=== PATIENT | female | born 1955 | race Caucasian/White ===

== ENCOUNTER 2018-02-27 01:23 | Observation (INO) ==
--- NOTE | 2018-02-27 01:52 | ED ---
HPI General Chief Complaint: Chest Pain Stated Complaint: Sternum pain x 1 hr,clammy,nausea Time Seen by Provider: 02/27/18 01:48 Source: patient Mode of arrival: ambulatory Limitations: no limitations History of Present Illness HPI narrative: 62-year-old female presents to the emergency department by private transportation the care of her spouse for evaluation of retrosternal chest pain associated with epigastric discomfort and mild diaphoresis with episode of nausea and times one episode of emesis without hematemesis or coffee- ground emesis. Patient has history of hypertension and family history of premature onset heart disease with both parents passing away from heart related issues and brother dying at age 49 from myocardial infarction. No prior similar history of epigastric to chest pain. Patient does admit to drinking alcohol this evening. Patient does not smoke tobacco and no prior history of gastritis peptic ulcer disease pancreatitis or gallbladder disease. MD complaint: Reports chest pain STEMI Alert: No Onset (ago): hour(s) Duration: constant and improved Onset: during rest Pain location: Reports substernal and epigastric Severity: moderate Quality: Reports tightness and aching; Denies ripping and similar to prior CA Pain radiation: Denies RUE, LUE, back, neck, jaw/teeth and abdomen Relieving factors: other (vomiting) Exacerbating factors: nothing Context: Denies recent illness, recent surgery, recent immobilization, recent travel, trauma/injury, new medications and history of DVT/PE Associated symptoms: Reports nausea, vomiting and diaphoresis; Denies dyspnea, sense of impending doom, syncope, palpitations, fever, cough and leg swelling Treatments prior to arrival chest pain: Reports none Related Data On Oral Contraceptives: No Home Medications Medication Instructions Recorded Confirmed alprazolam [Xanax] 0.25 mg PO BID PRN 02/27/18 02/27/18 losartan 100 mg PO DAILY 02/27/18 02/27/18 Allergies Allergy/AdvReac Type Severity Reaction Status Date / Time No Known Allergies Allergy Verified 02/27/18 02:15 Review of Systems ROS: all other systems reviewed are negative PMFSH History History Provided By: Patient (Hypertension; family history of CAD) Medical History Medical History Hypertension (Acute) Surgical History Surgical History Hx of appendectomy (Acute) Social History Social History Substance History: No History of Abuse Smoking Status: Former smoker How Often Do You Have a Drink Containing Alcohol: 4 or more times a week Exam Narrative Exam Narrative: GENERAL: Well-nourished, well-developed patient. SKIN: Focused skin assessment warm/dry. HEAD: Normocephalic. EYES: No scleral icterus. No injection or drainage. NECK: Supple, trachea midline. No JVD or lymphadenopathy. CARDIOVASCULAR: Regular rate and rhythm without murmurs, gallops, or rubs. RESPIRATORY: Breath sounds equal bilaterally. No accessory muscle use. GASTROINTESTINAL: Abdomen soft, non-tender, nondistended. MUSCULOSKELETAL: No cyanosis, or edema. BACK: Nontender without obvious deformity. No CVA tenderness. Course Initial Documented Vital Signs Temperature 98.0 F 02/27/18 01:33 Pulse Rate 99 H 02/27/18 01:33 Respiratory Rate 18 02/27/18 01:33 Blood Pressure 142/67 H 02/27/18 01:33 Pulse Oximetry 98 02/27/18 01:33 Last Documented Vital Signs Temperature 97.9 F 02/27/18 02:20 Pulse Rate 92 H 02/27/18 02:20 Respiratory Rate 18 02/27/18 02:20 Blood Pressure 128/68 02/27/18 02:20 Pulse Oximetry 97 02/27/18 02:20 Medical Decision Making MDM Narrative Medical decision making narrative: 62-year-old female presents with complaint of chest pain that improved after episode of emesis placed on cardiac monitor technician with continuous pulse oximetry IV access obtained specimens collected and sent for resulting EKG performed which is normal sinus rhythm rate [address] elevation injury pattern or ectopy noted Lab values found to be in normal range specifically troponin I less than 0.02, not elevated Plan observation admission for chest pain center per protocol in view of risk factor profile female age 62 hypertension and early onset cardiac disease with brother after CA at age 49 Patient's case discussed with Dr. Herrera for [facility] protocol obs admission Medical Screen Exam Complete: Yes Emergency Medical Condition: Yes Differential Diagnosis Differential Diagnosis: Chest pain atypical chest pain ACS CA gastritis peptic ulcer disease pancreatitis cholecystitis biliary colic esophageal spasm Medical Records Medical records reviewed: Yes I reviewed the patient's medical records. Lab Data Result diagrams: 02/27/18 01:50 02/27/18 01:50 Lab Results 02/27/18 02/27/18 02/27/18 Range/Units 01:50 01:50 01:50 CBC w Diff Auto diff final WBC 10.1 (4.0-11.0) th/mm3 RBC 4.53 (4.00-5.30) mil/mm3 Hgb 13.7 (11.6-15.3) gm/dL Hct 40.0 (35.0-46.0) % MCV 88.2 (80.0-100.0) fL MCH 30.2 (27.0-34.0) pg MCHC 34.3 (32.0-36.0) % RDW 12.5 (11.6-17.2) % Plt Count 262 (150-450) th/mm3 MPV 7.4 (7.0-11.0) fL Neut % (Auto) 78.6 H (16.0-70.0) % Lymph % (Auto) 15.0 (9.0-44.0) % [place] % (Auto) 4.7 (0.0-8.0) % Eos % (Auto) 1.1 (0.0-4.0) % Baso % (Auto) 0.6 (0.0-2.0) % Neut # (Auto) 7.9 H (1.8-7.7) th/mm3 Lymph # (Auto) 1.5 (1.0-4.8) th/mm3 [place] # (Auto) 0.5 (0.0-0.9) th/mm3 Eos # (Auto) 0.1 (0.0-0.4) th/mm3 Baso # (Auto) 0.1 (0.0-0.2) th/mm3 WBC Differential . Differential Comment . Sodium 141 (136-145) meq/L Potassium 3.8 (3.5-5.1) meq/L Chloride 106 (98-107) meq/L Carbon Dioxide 27.4 (21.0-32.0) meq/L Anion Gap 8 (5-15) meq/L BUN 15 (7-18) mg/dL Creatinine 0.71 (0.50-1.00) mg/dL Estimated GFR 84 L (>89) mL/min Random Glucose 143 H (74-106) mg/dL Calcium 8.0 L (8.5-10.1) mg/dL Magnesium 2.2 (1.5-2.5) mg/dL Total Bilirubin 0.3 (0.2-1.0) mg/dL AST 21 (15-37) U/L ALT 38 (10-53) U/L Alkaline Phosphatase 103 (45-117) U/L Troponin I Less than 0.02 L (0.02-0.05) ng/mL Total Protein 6.9 (6.4-8.2) g/dL Albumin 3.5 (3.4-5.0) g/dL Lipase 102 (73-393) U/L Imaging Data Radiologist's impression: Chest X-Ray 02/27/18 01:48 CONCLUSION: No acute cardiopulmonary process. ECG Data EKG Prior to Arrival: No Attestation: I personally reviewed and interpreted this ECG as follows: (EKG: Normal sinus rhythm rate 90 normal axis and intervals no acute ST elevation injury pattern or ectopy noted) Discharge Plan Discharge Disposition Patient Disposition: ED Admit(ED Internal Use Only) Discharge Condition Condition: Stable Discharge Order Discharge Orders: ED Use Only Admit Order (Routine); Ordered 02/27/18 Ordered By: Sherri Shaw Discharge Details Diagnosis: Chest pain Physicians Team ED Provider: Sherri Shaw Primary Care Provider: Kianna Sullivan Attending Provider: Cierra Henson Discharge Interventions Interventions: Vital Signs Last Done: 02/27/18 01:33 Status ED Status: Admitted Observation Patient
[2018-02-27] MEDS ORDERED: Sod Chloride 0.9% Inj 1,000 ML IV.CONT SCH (02:00)
--- NOTE | 2018-02-27 02:12 | XR ---
EXAM DATE: 02/27/2018 2:04 AM EST AGE/SEX: 62 years / Female INDICATIONS: Lower chest pain. CLINICAL DATA: This is the patient's initial encounter. Patient reports that signs and symptoms have been present for 1 day and indicates a pain score of 2/10. MEDICAL/SURGICAL HISTORY: None. None. COMPARISON: No prior exams available for comparison. FINDINGS: A single AP view of the chest demonstrates the lungs to be symmetrically aerated without evidence of mass, infiltrate or effusion. The cardiomediastinal contours are unremarkable. Osseous structures a re intact. CONCLUSION: No acute cardiopulmonary process. Electronically signed by: Dakotah Dodson MD Board Certified Radiologist 02/27/2018 2:11 AM EST
[2018-02-27 02:21] LABS: Chloride 106 meq/L (98-107); Potassium 3.8 meq/L (3.5-5.1); Sodium 141 meq/L (136-145)
[2018-02-27 02:27] LABS: Albumin 3.5 g/dL (3.4-5.0); Anion Gap 8 meq/L (5-15); Blood Urea Nitrogen 15 mg/dL (7-18); Carbon Dioxide 27.4 meq/L (21.0-32.0); Glucose,Random 143 mg/dL (74-106); Lipase 102 U/L (73-393)
[2018-02-27 02:29] LABS: Alanine Aminotransferase 38 U/L (10-53); Aspartate Aminotransferase 21 U/L (15-37); Glomerular Filtration Rate 84 mL/min (>89)
[2018-02-27 02:31] LABS: Total Protein 6.9 g/dL (6.4-8.2)
[2018-02-27 02:32] LABS: Alkaline Phosphatase 103 U/L (45-117)
[2018-02-27 02:42] LABS: Baso # (Auto) 0.1 th/mm3 (0.0-0.2); Baso % (Auto) 0.6 % (0.0-2.0); Eos # (Auto) 0.1 th/mm3 (0.0-0.4); Eos % (Auto) 1.1 % (0.0-4.0); Hemoglobin 13.7 gm/dL (11.6-15.3); Lymph # (Auto) 1.5 th/mm3 (1.0-4.8); Mean Corpuscular HGB Conc 34.3 % (32.0-36.0); Mean Corpuscular Hemoglobin 30.2 pg (27.0-34.0); Mean Corpuscular Volume 88.2 fL (80.0-100.0); Mean Platelet Volume 7.4 fL (7.0-11.0); Mono # (Auto) 0.5 th/mm3 (0.0-0.9); Mono % (Auto) 4.7 % (0.0-8.0); Neut # (Auto) 7.9 th/mm3 (1.8-7.7); Neut % (Auto) 78.6 % (16.0-70.0); Platelet Count 262 th/mm3 (150-450); Red Blood Count 4.53 mil/mm3 (4.00-5.30); Red Cell Distribution Width 12.5 % (11.6-17.2); White Blood Count 10.1 th/mm3 (4.0-11.0)
[2018-02-27] MEDS ORDERED: Acetaminophen 325 MG Tablet PO PRN (04:00)
[2018-02-27 06:06] LABS: Creatine Kinase 31 U/L (26-192)
[2018-02-27] MEDS ORDERED: ALPRAZolam 0.25 MG Tablet PO PRN (07:45)
--- NOTE | 2018-02-27 07:52 | P.HPIM ---
History of Present Illness Primary Care Physician: Kianna Sullivan MD Chief Complaint: Epigastric/chest pressure History of Present Illness: 62-year-old female with known history of hypertension who presented to hospital because of epigastric/chest discomfort. Patient states that she is normal state of health until last night she got woke up at approximate midnight with a pressure type sensation in her epigastric lower chest region, she states that she felt quite clammy and then the discomfort lasted for about an hour she went and had an episode of nausea and vomiting and the discomfort resolved. Because of a strong family history she came to emergency department for evaluation. Patient been asymptomatic since being in the hospital. ER physician evaluated the patient and workup was unremarkable and they recommend the patient be observed in the chest pain center. Patient states that she does have appointment scheduled with Dr. Gotti ic designer custom for cardiac evaluation. Patient denies any previous cardiac workup. Patient has been asymptomatic since coming to the hospital. Patient believes that it may be indigestion because she went out to dinner with her friends and had champagne last night and she did feel much better after she had an episode of nausea vomiting. She denies any radiation of pain to neck, back, shoulder, arm. Denies any shortness of breath, dyspnea, dizziness. Review of Systems Review of Systems: all other systems reviewed are negative Cardiovascular: Reports chest pain Gastrointestinal: Reports abdominal pain, Reports nausea and Reports vomiting [facility] Medical History Medical History Hypertension (Acute) Surgical History Surgical History History of (Acute) History of intestinal surgery (Acute) Hx of appendectomy (Acute) Social History Social History Substance History: No History of Abuse Second Hand Smoke Exposure: No Smoking Status: Former smoker Tobacco Type: Cigarettes Number of Pack-Years (if former smoker): 10 How Often Do You Have a Drink Containing Alcohol: 4 or more times a week Recent Travel in [place] within the Last 8 Weeks: No Recent Out of Country Travel within the Last 8 Weeks: No Immunization History Tetanus Immunization: >5 Years Medications and Allergies Allergies Allergy/AdvReac Type Severity Reaction Status Date / Time No Known Allergies Allergy Verified 02/27/18 02:15 Home Medications Medication Instructions Recorded Confirmed Type alprazolam [Xanax] 0.25 mg PO BID PRN 02/27/18 02/27/18 History losartan 100 mg PO DAILY 02/27/18 02/27/18 History Active Medications: Active Medications Acetaminophen (Tylenol) 650 mg PO Q4H PRN PRN Reason: Temp > 100.4 Alprazolam (Xanax) 0.25 mg PO BID PRN PRN Reason: Anxiety Aspirin (Aspirin) 325 mg PO DAILY [facility] Sodium Chloride (Ns Inj) 1,000 mls @ 100 mls/hr IV.CONT .Q10H MARYLOU Last Admin: 02/27/18 02:09 Dose: 100 mls/hr Nitroglycerin (Nitrostat Sl) 0.4 mg SL Q5M PRN PRN Reason: CHEST PAIN Non-Formulary Medication (Losartan [Losartan]) 100 mg PO DAILY MARYLOU Ondansetron HCl (Zofran Inj) 4 mg IV.PUSH Q6H PRN PRN Reason: NAUSEA OR VOMITING Sodium Chloride (Ns Flush) 2 ml IV.FLUSH UNSCH PRN PRN Reason: FLUSH AFTER USING IV ACCESS Sodium Chloride (Ns Flush) 2 ml IV.FLUSH BID MARYLOU Sodium Chloride (Ns Flush) 2 ml IV.FLUSH PRN PRN PRN Reason: FLUSH AFTER USING IV ACCESS Sodium Chloride (Ns Flush) 2 ml IV.FLUSH BID MARYLOU Sodium Chloride (Ns Flush) 2 ml IV.FLUSH PRN PRN PRN Reason: FLUSH AFTER USING IV ACCESS Physical Exam Vital signs: Last Vital Signs Temp 97.9 F 02/27/18 02:20 Pulse 76 02/27/18 05:18 Resp 18 02/27/18 05:18 BP 135/75 02/27/18 05:18 Pulse Ox 96 02/27/18 05:54 Intake & Output 02/25/18 02/26/18 02/27/18 02/28/18 06:59 06:59 06:59 06:59 Weight 65.3 kg Narrative: GENERAL: Well-developed, well-nourished, in no acute distress. alert and orientated HEENT: Head is normocephalic without any lesions or masses noted. Facial features are symmetric. Eyes: Pupils equal round reactive to light. Extraocular muscles are intact. Conjunctivae were clear. Oropharyngeal: Pharynx without any erythema edema. Tongue is midline without deviation. Buccal mucosa is moist without any masses or lesions NECK: Supple without any masses. Trachea midline no deviation. No JVD, no bruits are appreciated CARDIAC: Regular rhythm, regular rate. S1/S2 are heard. No murmurs gallops or rubs. LUNGS: Clear to auscultation bilaterally. No wheeze, rhonchi or rales. No use of accessory muscles on inspiration or expiration. ABDOMEN: Soft, nontender. Nondistended. Bowel sounds heard in all 4 quadrants. No organomegaly or masses. Negative rebound, negative guarding EXTREMITIES: No edema, pulses are equal bilaterally. No cyanosis or clubbing NEUROLOGY: Mood and affect appear appropriate. Cranial nerves II through XII grossly intact. Muscle strength 5/5 in upper and lower extremities bilaterally. Deep tendon reflexes are 2+ in upper and lower extremities bilaterally. Results Labs CBC & Chem 7: 02/27/18 01:50 02/27/18 01:50 Imaging Impressions Chest X-Ray 02/27/18 01:48 CONCLUSION: No acute cardiopulmonary process. Caprini VTE Risk Assessment Caprini VTE Risk Assessment: Moderate/High Risk (score >= 2) Caprini Risk Assessment Model: Point Value = 1 Point Value = 2 Point Value = 3 Point Value = 5 Age 41-60 Minor surgery BMI > 25 kg/m2 Swollen legs Varicose veins or History of unexplained or recurrent spontaneous Oral contraceptives or hormone replacement Sepsis (< 1 month) Serious lung disease, including pneumonia (< 1 month) Abnormal pulmonary function Acute myocardial infarction Congestive heart failure (< 1 month) History of inflammatory bowel disease Medical patient at bed rest Age 61-74 Arthroscopic surgery Major open surgery (> 45 min) Laparoscopic surgery (> 45 min) Malignancy Confined to bed (> 72 hours) Immobilizing plaster cast Central venous access Age >= 75 History of VTE Family history of VTE Factor V Leiden Prothrombin [id number] Lupus anticoagulant Anticardiolipin antibodies Elevated serum homocysteine Heparin-induced thrombocytopenia Other congenital or acquired thrombophilia Stroke (< 1 month) Elective arthroplasty Hip, pelvis, or leg fracture Acute spinal cord injury (< 1 month) Prophylaxis Regimen: Total Risk Factor Score Risk Level Prophylaxis Regimen 0-1 Low Early ambulation 2 Moderate Order ONE of the following: *Sequential Compression Device (SCD) *Heparin 5000 units SQ BID 3-4 Higher Order ONE of the following medications: *Heparin 5000 units SQ TID *Enoxaparin/Lovenox 40 mg SQ daily (WT < 150 kg, CrCl > 30 mL/min) *Enoxaparin/Lovenox 30 mg SQ daily (WT < 150 kg, CrCl > 10-29 mL/min) *Enoxaparin/Lovenox 30 mg SQ BID (WT < 150 kg, CrCl > 30 mL/min) AND/OR *Sequential Compression Device (SCD) 5 or more Highest Order ONE of the following medications: *Heparin 5000 units SQ TID (Preferred with Epidurals) *Enoxaparin/Lovenox 40 mg SQ daily (WT < 150 kg, CrCl > 30 mL/min) *Enoxaparin/Lovenox 30 mg SQ daily (WT < 150 kg, CrCl > 10-29 mL/min) *Enoxaparin/Lovenox 30 mg SQ BID (WT < 150 kg, CrCl > 30 mL/min) AND *Sequential Compression Device (SCD) Assessment and Plan Plan Chest pain/epigastric pain Patient does have increased risk factors include age, hypertension, history of tobacco use, family history of heart disease Patient has been ruled out for acute coronary event with serial cardiac enzymes are negative EKGs were reviewed by myself which shows sinus rhythm without any changes Myocardial perfusion study was performed and indicated no signs of ischemia, low risk Continue aspirin, nitroglycerin as needed Continue monitor telemetry Notify patient to keep her appointment with the ic designer custom to have complete follow-up and management Hypertension Continue home medications DVT prevention Sequential compression devices Discharge Planning: Discharge home in stable condition Activity: Ad bryanna. Diet: Healthy heart diet Medication per medication reconciliation Follow-up with primary medical doctor in 1 week H&P: Quality VTE Deep Vein Thrombosis/Pulmonary Embolism Present on Admission: No
[2018-02-27] MEDS ORDERED: Regadenoson Inj 0.4 MG/5 ML Syringe IV.PUSH ONE (08:37)
[2018-02-27] MEDS ORDERED: Aspirin 325 MG Tablet PO SCH (09:00)
[2018-02-27 09:19] LABS: Creatine Kinase 27 U/L (26-192)
--- NOTE | 2018-02-27 09:50 | NM ---
EXAM DATE: 02/27/2018 9:40 AM EST AGE/SEX: 62 years / Female INDICATIONS:Angina. . Epigastric pain and chest discomfort. CLINICAL DATA: This is the patient's initial encounter. Patient reports that signs and symptoms have been present for 1 day and indicates a pain score of 3/10. MEDICAL/SURGICAL HISTORY: Hypertension. section. Appendectomy. Intestinal surgery. COMPARISON: No prior exams available for comparison. DOSE: 8.6 mCi Tc 99m Myoview at rest 26.2 mCi [id number] at stress 0.4 mg Lexiscan STRESS SYMPTOMS: Dyspnea and extremities tingling. EJECTION FRACTION: 70 % TECHNIQUE: The patient underwent pharmacologic stress with infusion of prescribed dose. Continuous ECG tracing was monitored during stress. Gated SPECT imaging was performed after stress and conventi onal SPECT imaging was performed at rest. The examination was performed on a SPECT/CT scanner, both attenuation and non-corrected datasets were reviewed. FINDINGS: Distribution: The maximum perfused segment at stress is in the inferior wall. Perfusion Study: The pattern of perfusion at stress is within normal limits. Gated Study: There are intact wall motion and wall thickening without hypokinetic or dyskinetic segm ents. The ejection fraction is calculated at 70%. RISK CATEGORY: Low (<1% Annual Mortality Rate) CONCLUSION: 1. Negative examination. 2. No evidence of fixed or reversible perfusion abnormalities. 3. Normal wall motion and ejection fraction. Electronically signed by: Drew Alexandra MD Board Certified Radiologist 02/27/2018 9:49 AM EST
[2018-02-27 10:33] VITALS: BP 133/85; PULSE 77; RESP 16; TEMP 97.7; O2SAT 98
--- NOTE | 2018-02-27 12:16 | ECG ---
Date Performed: 02/27/2018 Time Performed: 05:14:50 PTAGE: 62 years EKG: Sinus rhythm NORMAL ECG Since the PREVIOUS TRACING , no significant change noted PREVIOUS TRACIN02/27/2018 01.44 DOCTOR: Sandy Pelaez Interpretating Date/Time 02/27/2018 12:13:50
--- NOTE | 2018-02-27 12:16 | ECG ---
Date Performed: 02/27/2018 Time Performed: 01:44:22 PTAGE: 62 years EKG: Sinus rhythm NORMAL ECG NO PREVIOUS TRACING DOCTOR: Sandy Pelaez Interpretating Date/Time 02/27/2018 12:12:42
--- NOTE | 2018-02-28 07:58 | TR ---
Date Performed: 02/27/2018 Time Performed: 08:48:29 DOCTOR: Scar Silva DRUG LIST: CLINICAL HISTORY: REASON FOR TEST: Angina REASON FOR ENDING: OBSERVATION: CONCLUSION: COMMENTS: Lexiscan stress test was performed under standard four minute protocol. Radionuclide was injected one minute prior to ending the test. No electrocardiographic abormalities were present t o suggest ischemia. Nuclear imaging and interpretation are pending.
--- NOTE | 2018-02-28 13:44 | ECG ---
Date Performed: 02/27/2018 Time Performed: 08:13:36 PTAGE: 62 years EKG: Sinus rhythm NORMAL ECG Since the PREVIOUS TRACING , no significant change noted PREVIOUS TRACIN02/27/2018 05.14 DOCTOR: Tito Coffman Interpretating Date/Time 02/28/2018 13:32:29
== END 2018-02-27 11:03 | disposition home or self-care (01) ==
LOC: PHEDA 01:23 → PHED 01:23 → PH3 05:37
PROVIDERS: ADMIT Internal Medicine; ATTEND Internal Medicine
CPT/HCPCS: 71010; 71045; 78452; 80053; 82550; 83690; 83735; 84484; 85025; 93005; 93017; 99285; A9502; G0378; J2785; J7030; Q9969